=== PATIENT | male | born 1960 ===

== ENCOUNTER → 2016-12-15 | Day surgery (SDC) | payer BC, OTHER ==
[2016-12-05 07:45] VITALS: Ht 180.3 cm; Wt 84.1 kg
[~2016-12-15] VITALS: Ht 180.3 cm; Wt 84.1 kg
[~2016-12-15] MED LIST: ATROPINE SULFATE 0.1 MG/ML 5ML SYR IV PRN; BUPIVACAINE/EPINEPHRINE 0.25% 1:200,000 30 ML VIAL ONE; CEFAZOLIN 2000 MG/60 ML D5W IV SCH; DEXAMETHASONE SOD INJ 4 MG/ML VIAL ONE; EpHEDrine SULFATE 50MG/5ML SYR ONE; EpHEDrine SULFATE INJ 50 MG/ML AMP IV PRN; EpINEphrine INJ 1MG/ML AMP 1 MG/ML AMP ONE; FENTANYL CITRATE INJ 50 MCG/1 ML 2 ML VIAL IV PRN; FENTANYL CITRATE INJ 50 MCG/1 ML 2 ML VIAL ONE; KETO10TA PO; LACTATED RINGER'S 1000ML 1,000 ML IV SCH; LIDOCAINE HCL 2% 2 ML VIAL (20MG/ML) ONE; MIDAZOLAM HCL 1 MG/ML 2ML VIAL ONE; ONDANSETRON INJ 2 MG/ML 2 ML VIAL IV PRN; ONDANSETRON INJ 2 MG/ML 2 ML VIAL ONE; OXYC-57 PO; OXYCODONE/ACETAMINOPHEN 5-325 TAB PO PRN; PROPOFOL IV EMULSION 10 MG/ML 20 ML VIAL IV ONE; ROPIVACAINE 0.5% 5 MG/ML 30 ML VIAL ONE; SODIUM CHLORIDE 0.9% 1000ML 1,000 ML IV SCH
--- NOTE | 2016-12-15 06:45 | History & Physical Bridge - SC ---
H&P Re-Evaluation Bridge Note: I have examined the patient, reviewed the History & Physical and in the interval since the performance of the History & Physical I have noted the following changes of clinical significance: No changes noted
--- NOTE | 2016-12-15 09:40 | [facility] Post Operative Brief Note ---
Immediate Operative Summary Operative Date Dec 15, 2016. Pre-Operative Diagnosis Medium Rotator Cuff Tear Right Shoulder Post-Operative Diagnosis same Procedure(s) Performed Right Shoulder Arthroscopy,Medium Rotator Cuff Repair, Biceps Tenodesis Surgeon Dr. Maykel Tang Full Time Staff Interpreter Surgeon(s) Yony Arreaga PA-C Estimated Blood Loss 5cc Findings as above Specimens None Complication(s) None Disposition Recovery Room / PACU
--- NOTE | 2016-12-15 09:47 | OPERATIVE REPORT ---
DATE OF OPERATION: 12/15/2016 PREOPERATIVE DIAGNOSES: Medium sized right rotator cuff tear and biceps tendinopathy. POSTOPERATIVE DIAGNOSES: Same. PROCEDURE: Right shoulder diagnostic arthroscopy with limited debridement, acromioplasty, medium sized degenerative crescent shaped rotator cuff repair and open subpectoral biceps tenodesis. SURGEON: Dr. Pb Tang. GUYLINE OPERATOR: Yony Arreaga PA-C, whose assistance was necessary for positioning the arm and helping with instrumentation. ANESTHESIA: General with a right interscalene nerve block. COMPLICATIONS: None. CONDITION: Stable to PACU. INDICATIONS: Shaan is a pleasant 56-year-old male who presented to my office with complaints of right shoulder pain. MRI and clinical examination were diagnostic for a medium sized rotator cuff tear. I treated him conservatively for several years with injections and is finally ready to undergo rotator cuff repair. DESCRIPTION OF PROCEDURE: On 12/15/2016, he arrived at the [facility] for the above procedure. He was seen in the preoperative holding area and the operative extremity was identified and signed. He was given a preoperative antibiotic, taken back to the operating room, laid on the table in the supine position and put under general anesthesia. He was then put into the beachchair position. The right shoulder was prepped and draped in sterile fashion. Time-out was done and the patient and operative extremity was properly identified. A scope was placed in the posterior portal. Diagnostic arthroscopy showed no cartilage damage to the humeral head. There was a little grade 4 cartilage change on the far anterior glenoid. There was a lot of fraying of the labrum. There was a degenerative superior labral tear. The biceps tendon was generally intact and went through biceps som mechanism. There was a tear involving the entire supraspinatus. The infraspinatus, teres minor, and subscapularis were all checked and intact. An anterior portal was made. A shaver was used to do a limited debridement of the intraarticular structures and the biceps tendon was arthroscopically tenotomized. The scope was then put into the subacromial space. A lateral portal was made. A shaver was used to do a complete subacromial and subdeltoid bursectomy. An ablator was used to tease the coracoacromial ligament off the undersurface of the acromion and a 5-0 trey was used to complete an acromioplasty of a Bigliani type 3 acromion. A shaver was used to remove any excess debris. Attention was turned to the rotator cuff. An additional anterolateral portal was made. Faith cannulas were placed in each of the lateral portals. The greater tuberosity was prepared with a ring curette and a microfracture. The rotator cuff was then fixed with an Arthrex SpeedBridge configuration using 2 medial and 2 lateral 4.75-mm BioComposite SwiveLock suture anchors and FiberTape. This gave a nice repair. Multiple pictures were taken. The scope was placed back into the glenohumeral joint and the articular margin of the rotator cuff had been restored. Pictures were taken. Arthroscopic instruments were removed from the shoulder. Attention was turned to an open biceps tenodesis. A small incision was made over the inferior border of the pec major. Dissection was taken through the fascia and the long head of the biceps tendon was delivered out of the wound. The tendon was then whipstitched at the anticipated level of tenodesis and the remainder of the tendon was discarded. A 6-mm hole was drilled in the bicipital groove and the biceps tendon was tenodesed with an Arthrex biceps button that was passed through the posterior cortex in a tension slide technique to deliver the tendon into the 6-mm hole. This gave good fixation. The tails were then tied and cut. The wound was then irrigated and closed with 3-0 Vicryl and running 3-0 Monocryl. Steri-strips were placed. Portal sites were closed with 3-0 nylon. He was then placed in a soft dressing and abduction arm sling. He was then extubated, transferred to a [facility] and taken to the postanesthesia care unit in stable condition. He tolerated the procedure well. I attest to the content of the Intraoperative Record and any orders documented therein. Any exceptio ns are noted below.
--- NOTE | 2016-12-15 09:53 | Discharge Instructions-SurgCtr ---
Discharge Instructions Visit Reason for Visit: Full Thickness Rotator Cuff Tear, Shoulder Joint P Discharge Discharge Diagnosis / Problem: SAME ABOVE Discharge Goals Goal(s): Decrease discomfort, Improve function Activity Recommendations Activity Limitations: as noted below Lifting Limitations: until after follow-up appointment Exercise/Sports Limitations: until after follow-up appointment Shower/Bathe: tomorrow Driving or Machine Use: MAY NOT DRIVE WHILE IN THE SLING. SLING MUST BE WORN OTHER THAN FOR PT AND SHOWER Anesthesia . Post Anesthesia Instructions: If you have had General Anesthesia or IV Sedation: * Do not drive today. * Resume driving when surgeon permits. * Do not make important decisions or sign legal documents today. * Call surgeon for: 1. Temperature elevations greater than 101 degrees F. 2. Uncontrollable pain. 3. Excessive bleeding. 4. Persistent nausea and vomiting. 5. Medication intolerance (nausea, vomiting or rash). * For nausea and vomiting use only clear liquids such as: tea, soda, bouillon until nausea subsides, then gradually increase diet as tolerated. * If you have any concerns or questions, call your surgeon's office. If physician is unavailable and it is an emergency, call 911 or go to the nearest emergency room. . Instructions / Follow-Up Instructions / Follow-Up MEDICATIONS: * Resume previous medications unless instructed otherwise by your surgeon. * Always take pain medication on a full stomach or with food to avoid upset stomach. * Do not drink alcohol or drive while taking narcotics. * Ibuprofen or Tylenol may be taken if narcotic not needed. SPECIAL CARE INSTRUCTIONS: __ None _X_ Keep extremity elevated and iced x 48 hours; apply ice 20-30 minutes 8-10 times/day. May remove at night. __ Sling __24 hrs/day __ Remove at night _X_ Shoulder Immobilizer (MAY REMOVE AFTER 48 HOURS ONLY TO SHOWER AND FOR THERAPY) _X_ 24 hrs/day __ Remove at night _X_ Dressing __ Maintain until seen in office, may shower with plastic over site _X_ Remove dressings in 24-48 hours and then may shower _X_ Cover incisions with band-aids after showering _X_ Do not remove steri-strips (THEY MAY FALL OFF ON THEIR OWN) Call physician if chills or temperature rises above 102 degrees or pain unrelieved by prescribed pain medications at . . Diet Recommendations Home Diet: no limitations Fluid Restriction: None Procedures Procedures Performed: Right Shoulder Arthroscopy,Medium Rotator Cuff Repair, Biceps Tenodesis Pending Studies Studies pending at discharge: no Work Instructions Return To Work: after follow-up Lifting Limitations: NO LIFTING WITH RIGHT ARM Medical Emergencies . Who to Call and When: Medical Emergencies: If at any time you feel your situation is an emergency, please call 911 immediately. . Non-Emergent Contact Non-Emergency issues call your: Primary Care Provider Call Non-Emergent contact if: temperature is above 101.5 . . "Provider Documentation" section prepared by Ion Arreaga.
[2016-12-15 10:30] VITALS: TEMP 36.4
[2016-12-15 10:50] VITALS: BP 126/84; PULSE 59; O2SAT 97
--- NOTE | 2016-12-15 10:55 | Anesthesia Progress Nt - [facility] ---
Anesthesia Post Op Note Date & Time Dec 15, 2016 at 10:55 Vital Signs Pain Intensity: 0 Vital Signs Past 12 Hours Date Time Temp Pulse Resp B/P Pulse Ox O2 Delivery O2 Flow Rate FiO2 12/15/16 10:50 59 16 126/84 97 Room Air 12/15/16 10:30 36.4 60 16 132/80 96 Room Air 12/15/16 10:21 36.4 12/15/16 10:18 58 12 120/84 95 12/15/16 10:18 56 12 12/15/16 10:13 53 12 126/81 99 12/15/16 10:13 54 12 12/15/16 10:08 58 13 152/85 99 12/15/16 10:08 58 13 12/15/16 10:03 65 13 12/15/16 10:03 64 13 138/88 96 12/15/16 09:58 64 13 12/15/16 09:58 63 13 126/82 99 12/15/16 09:53 63 15 12/15/16 09:53 63 15 131/83 99 12/15/16 09:50 142/84 12/15/16 09:48 36.0 68 16 142/84 98 Diffusion Mask 6 12/15/16 08:03 0 12/15/16 07:58 55 12/15/16 07:58 55 24 130/76 97 12/15/16 07:53 57 12/15/16 07:53 56 20 130/80 98 12/15/16 07:48 60 12/15/16 07:48 60 16 129/87 12/15/16 07:43 57 12/15/16 07:43 57 13 125/85 98 12/15/16 07:38 58 12/15/16 07:38 59 18 149/102 12/15/16 07:33 57 12/15/16 07:33 58 144/97 98 12/15/16 07:30 55 12 139/90 97 Mask 4 12/15/16 07:28 56 12/15/16 07:28 56 0 139/90 12/15/16 07:23 53 12/15/16 07:23 53 0 150/89 96 12/15/16 07:18 56 0 140/94 96 12/15/16 07:18 54 12/15/16 07:13 55 12/15/16 07:13 60 0 134/89 96 12/15/16 07:08 55 0 130/85 97 12/15/16 07:08 56 12/15/16 06:38 59 98 12/15/16 06:38 59 12/15/16 06:37 127/84 12/15/16 06:36 36.9 67 20 127/84 97 Room Air Notes Mental Status: alert / awake / arousable, participated in evaluation Pt Amnestic to Procedure: Yes Nausea / Vomiting: adequately controlled Pain: adequately controlled Airway Patency, RR, SpO2: stable & adequate BP & HR: stable & adequate Hydration State: stable & adequate Anesthetic Complications: no major complications apparent
== END | disposition home or self-care (01) ==
LOC: X.SURG 06:23
PROVIDERS: ATTEND Orthopaedic Surgery
DX: M75.101 Unspecified rotator cuff tear or rupture of right shoulder, not specified as traumatic (principal); M75.21 Bicipital tendinitis, right shoulder

== ENCOUNTER → 2017-01-24 | Outpatient (CLI) | payer BC, OTHER ==
[~2017-01-24] MED LIST changes: -ATROPINE SULFATE 0.1 MG/ML 5ML SYR IV PRN; -BUPIVACAINE/EPINEPHRINE 0.25% 1:200,000 30 ML VIAL ONE; -CEFAZOLIN 2000 MG/60 ML D5W IV SCH; -DEXAMETHASONE SOD INJ 4 MG/ML VIAL ONE; -EpHEDrine SULFATE 50MG/5ML SYR ONE; -EpHEDrine SULFATE INJ 50 MG/ML AMP IV PRN; -EpINEphrine INJ 1MG/ML AMP 1 MG/ML AMP ONE; -FENTANYL CITRATE INJ 50 MCG/1 ML 2 ML VIAL IV PRN; -FENTANYL CITRATE INJ 50 MCG/1 ML 2 ML VIAL ONE; -LACTATED RINGER'S 1000ML 1,000 ML IV SCH; -LIDOCAINE HCL 2% 2 ML VIAL (20MG/ML) ONE; -MIDAZOLAM HCL 1 MG/ML 2ML VIAL ONE; -ONDANSETRON INJ 2 MG/ML 2 ML VIAL IV PRN; -ONDANSETRON INJ 2 MG/ML 2 ML VIAL ONE; -OXYCODONE/ACETAMINOPHEN 5-325 TAB PO PRN; -PROPOFOL IV EMULSION 10 MG/ML 20 ML VIAL IV ONE; -ROPIVACAINE 0.5% 5 MG/ML 30 ML VIAL ONE; -SODIUM CHLORIDE 0.9% 1000ML 1,000 ML IV SCH
[2017-01-24 13:54] LABS: BASO % 0.6 %; BASO ABS # 0.03 K/uL (0-0.2); COMPLETE YES; EOS % 4.8 %; HEMATOCRIT 41.2 % (42-52); IG% 0.2 %; LYMPH % 46.9 %; LYMPH ABS # 2.53 K/uL (1.2-3.4); MEAN CELL VOLUME 88.2 fL (80-100); MEAN CORPUSCULAR HEMOGLOBIN 29.8 pg (25-34); MEAN CORPUSCULAR HGB CONC 33.7 g/dl (32-36); MEAN PLATELET VOLUME 10.6 fL (7.4-10.4); MONO % 8.5 %; PLATELET COUNT 208 K/uL (130-400); RED BLOOD COUNT 4.67 M/uL (4.7-6.1)
[2017-01-24 14:05] LABS: BLOOD UREA NITROGEN 22 mg/dl (7-18); BUN/CREATININE RATIO 23.8 (10-20); CALCIUM 9.2 mg/dl (8.5-10.1); CARBON DIOXIDE 25 mmol/L (21-32); CHLORIDE 107 mmol/L (98-107); CREATININE 0.92 mg/dl (0.60-1.40); GLUCOSE 84 mg/dl (70-99); POTASSIUM 4.1 mmol/L (3.5-5.1); SODIUM 141 mmol/L (136-145)
== END | disposition home or self-care (01) ==
LOC: C.LABBC 11:20
PROVIDERS: ATTEND Orthopaedic Surgery
DX: Z01.812 Encounter for preprocedural laboratory examination (principal); M75.41 Impingement syndrome of right shoulder

== ENCOUNTER → 2017-02-02 | Day surgery (SDC) | payer BC, OTHER ==
[2017-01-26 08:13] VITALS: Ht 180.3 cm; Wt 84.1 kg
[~2017-02-02] VITALS: Ht 180.3 cm; Wt 84.1 kg
[~2017-02-02] MED LIST changes: +ATROPINE SULFATE 0.1 MG/ML 5ML SYR IV PRN; +BUPIVACAINE/EPINEPHRINE 0.25% 1:200,000 30 ML VIAL ONE; +CEFAZOLIN 2000 MG/60 ML D5W IV SCH; +DEXAMETHASONE SOD INJ 4 MG/ML VIAL ONE; +EpHEDrine SULFATE INJ 50 MG/ML AMP IV PRN; +EpINEphrine INJ 1MG/ML AMP 1 MG/ML AMP ONE; +FENTANYL CITRATE INJ 50 MCG/1 ML 2 ML VIAL IV PRN; +FENTANYL CITRATE INJ 50 MCG/1 ML 2 ML VIAL ONE; +FLUMAZENIL 0.1 MG/1 ML 10 ML VIAL IV PRN; +HYDROmorphone INJ 2 MG/ML SYR/VIAL IV PRN; +LABETALOL HCL IV 5 MG/ML 20ML IV PRN; +LACTATED RINGER'S 1000ML 1,000 ML IV SCH; +LIDOCAINE HCL 2% 2 ML VIAL (20MG/ML) ONE; +MEPERIDINE HCL 25 MG/ML CARP IV PRN; +MIDAZOLAM HCL 1 MG/ML 2ML VIAL ONE; +NALOXONE HCL 0.4 MG/1 ML VIAL/CARP IV PRN; +ONDANSETRON INJ 2 MG/ML 2 ML VIAL IV PRN; +ONDANSETRON INJ 2 MG/ML 2 ML VIAL ONE; +OXYCODONE/ACETAMINOPHEN 5-325 TAB PO PRN; +PHENYLEPHRINE 100MCG/ML 5ML SYR IV PRN; +PROPOFOL IV EMULSION 10 MG/ML 20 ML VIAL IV ONE; +ROPIVACAINE 0.5% 5 MG/ML 30 ML VIAL ONE; +SODIUM CHLORIDE 0.9% 1000ML 1,000 ML IV SCH
[2017-02-02] MEDS: BUPIVACAINE/EPINEPHRINE 0.25% 1:200,000 30 ML VIAL ONE ×2 (14:01→14:10)
--- NOTE | 2017-02-02 14:21 | [facility] Post Operative Brief Note ---
Immediate Operative Summary Operative Date Feb 02, 2017. Pre-Operative Diagnosis Left Shoulder Rotator Cuff Tendonitis, Impingement Post-Operative Diagnosis Same Procedure(s) Performed Left Shoulder Arthroscopy, Subacromial Decompression, Open Bicep Tenodesis Surgeon Dr. Tang Jewelry Setter Surgeon(s) Reynaldo Arreaga PA-C Estimated Blood Loss 5 ml Findings as above Specimens None Complication(s) None Disposition Recovery Room / PACU
--- NOTE | 2017-02-02 14:22 | Discharge Instructions-SurgCtr ---
Discharge Instructions Date of Service Feb 02, 2017. Visit Reason for Visit: Left Shoulder Rotator Cuff Tendonitis, Impingement Discharge Discharge Diagnosis / Problem: SAME ABOVE Discharge Goals Goal(s): Decrease discomfort, Improve function Activity Recommendations Activity Limitations: as noted below Lifting Limitations: until after follow-up appointment Exercise/Sports Limitations: until after follow-up appointment Shower/Bathe: tomorrow Anesthesia . Post Anesthesia Instructions: If you have had General Anesthesia or IV Sedation: * Do not drive today. * Resume driving when surgeon permits. * Do not make important decisions or sign legal documents today. * Call surgeon for: 1. Temperature elevations greater than 101 degrees F. 2. Uncontrollable pain. 3. Excessive bleeding. 4. Persistent nausea and vomiting. 5. Medication intolerance (nausea, vomiting or rash). * For nausea and vomiting use only clear liquids such as: tea, soda, bouillon until nausea subsides, then gradually increase diet as tolerated. * If you have any concerns or questions, call your surgeon's office. If physician is unavailable and it is an emergency, call 911 or go to the nearest emergency room. . Instructions / Follow-Up Instructions / Follow-Up MEDICATIONS: * Resume previous medications unless instructed otherwise by your surgeon. * Always take pain medication on a full stomach or with food to avoid upset stomach. * Do not drink alcohol or drive while taking narcotics. * Ibuprofen or Tylenol may be taken if narcotic not needed. SPECIAL CARE INSTRUCTIONS: __ None _X_ Keep extremity elevated and iced x 48 hours; apply ice 20-30 minutes 8-10 times/day. May remove at night. _X_ Sling (WEAR NEEDED FOR COMFORT) __24 hrs/day __ Remove at night __ Shoulder Immobilizer __ 24 hrs/day __ Remove at night _X_ Dressing __ Maintain until seen in office, may shower with plastic over site _X_ Remove dressings in 24-48 hours and then may shower _X_ Cover incisions with band-aids after showering _X_ Do not remove steri-strips (THEY MAY FALL OFF ON THEIR OWN) Call physician if chills or temperature rises above 102 degrees or pain unrelieved by prescribed pain medications at . . Diet Recommendations Home Diet: no limitations Fluid Restriction: None Procedures Procedures Performed: Left Shoulder Arthroscopy, Subacromial Decompression, Open Bicep Tenodesis Pending Studies Studies pending at discharge: no Work Instructions Return To Work: after follow-up Lifting Limitations: NO LIFTING WITH LEFT ARM Medical Emergencies . Who to Call and When: Medical Emergencies: If at any time you feel your situation is an emergency, please call 911 immediately. . Non-Emergent Contact Non-Emergency issues call your: Primary Care Provider Call Non-Emergent contact if: you have a fever, temperature is above 101.5 . . "Provider Documentation" section prepared by Ion Arreaga.
--- NOTE | 2017-02-02 14:52 | OPERATIVE REPORT ---
DATE OF OPERATION: 02/02/2017 PREOPERATIVE DIAGNOSIS: External impingement, biceps tendonitis of the left shoulder. POSTOPERATIVE DIAGNOSIS: Same. PROCEDURE: Left shoulder diagnostic arthroscopy with limited debridement, acromioplasty and open subpectoral biceps tenodesis. SURGEON: Dr. Pb Tang. RECORDS ANALYST: Yony Arreaga PA-C, whose assistance was necessary for positioning the arm and helping with instrumentation. ANESTHESIA: General with left interscalene nerve block. COMPLICATIONS: None. CONDITION: Stable to PACU. INDICATIONS: Shaan is a pleasant 56-year-old male who I did a right rotator cuff repair on about 8 weeks ago. He has done well with that. He was having a lot of left shoulder pain. MRI and clinical examination were diagnostic for severe external impingement without cuff tear. He elected to undergo arthroscopy. OPERATION AND FINDINGS: PROCEDURE: On 02/02/2017, he arrived at [facility] for the above procedure. He was seen in the preoperative holding and the operative extremity was identified and signed. He was given a preoperative antibiotic, taken back to the operating room, laid on the table in supine position and put under general anesthesia. He was then put into the beachchair position. The left shoulder was prepped and draped in sterile fashion. Time-out was done and the patient and operative extremity was properly identified. A scope was introduced in the posterior portal. Diagnostic arthroscopy showed a line of grade 4 chondral damage along the center of the humerus. Pictures were taken. There was also some grade 4 chondral damage in the anterior inferior aspect of the glenoid. There was some fraying of the anterior and inferior labrum. The biceps tendon was very red on the dorsal aspect. There was no tearing of the supraspinatus, infraspinatus, teres minor or subscapularis. An anterior portal was made. A shaver was used to do a limited debridement of the intraarticular structures and the biceps tendon was arthroscopically tenotomized. The scope was then put into the subacromial space. A lateral portal was made. A shaver was used to do a complete subacromial and subdeltoid bursectomy. An ablator was used to tease the coracoacromial ligament off the undersurface of the acromion and a 5-0 trey was used to complete an acromioplasty of a Bigliani type 3 acromion. A shaver was used to remove any excess debris and attention was turned to the rotator cuff. The rotator cuff was examined extensively without evidence of tear. Arthroscopic instruments were removed from the shoulder. Attention was turned to an open biceps tenodesis. A small incision was made over the inferior border of the pec major. Dissection was taken down through the fascia and the long head of the biceps tendon was delivered out of the wound. The tendon was then whip stitched at the anticipated level of tenodesis and the remainder of the tendon was discarded. A 6 mm hole was drilled in the bicipital groove and the biceps tendon was tenodesed with an Arthrex biceps button that was passed through the posterior cortex in a tension slide technique to deliver the tendon into the 6 mm hole. This gave good fixation. The wound was then irrigated and closed with 3-0 Vicryl and running 3-0 Monocryl. Steri-strips were placed. Portal sites were closed with 3-0 nylon. He was then placed in a soft dressing and a regular arm sling. He was then extubated, transferred to a litter and taken to the postanesthesia care unit in stable condition. He tolerated the procedure well. I attest to the content of the Intraoperative Record and any orders documented therein. Any exceptio ns are noted below.
[2017-02-02 14:54] VITALS: TEMP 36.4
--- NOTE | 2017-02-02 14:55 | Anesthesia Progress Nt - [facility] ---
Anesthesia Post Op Note Date & Time Feb 02, 2017 at 14:55 Vital Signs Pain Intensity: 0 Vital Signs Past 12 Hours Date Time Temp Pulse Resp B/P Pulse Ox O2 Delivery O2 Flow Rate FiO2 02/02/17 14:51 36.4 134/98 02/02/17 14:48 55 12 95 02/02/17 14:48 57 12 02/02/17 14:47 59 13 96 02/02/17 14:47 57 13 02/02/17 14:46 129/88 02/02/17 14:42 60 12 02/02/17 14:42 61 12 97 02/02/17 14:41 145/85 02/02/17 14:37 59 14 97 02/02/17 14:37 60 14 02/02/17 14:36 150/83 02/02/17 14:32 56 9 02/02/17 14:32 56 9 100 02/02/17 14:31 142/89 02/02/17 14:27 59 8 99 02/02/17 14:27 60 8 02/02/17 14:26 120/85 02/02/17 14:23 144/93 02/02/17 14:22 36.2 75 16 144/93 99 Mask 6 02/02/17 14:22 67 98 02/02/17 14:22 67 02/02/17 13:17 0 02/02/17 13:16 0 02/02/17 13:15 0 02/02/17 13:11 167/103 02/02/17 13:10 66 0 97 02/02/17 13:10 68 02/02/17 13:10 20 02/02/17 13:06 175/99 02/02/17 13:05 20 02/02/17 13:05 84 98 02/02/17 13:05 83 02/02/17 13:01 152/102 02/02/17 13:00 80 02/02/17 13:00 16 02/02/17 13:00 80 0 99 02/02/17 12:55 76 0 02/02/17 12:50 78 13 02/02/17 12:45 79 14 02/02/17 12:40 77 13 02/02/17 12:36 138/97 02/02/17 12:35 72 25 99 02/02/17 12:35 72 02/02/17 12:31 186/101 02/02/17 12:30 75 02/02/17 12:30 75 29 100 02/02/17 12:29 176/104 02/02/17 12:25 73 0 02/02/17 12:20 71 0 02/02/17 12:15 79 0 02/02/17 12:10 68 0 02/02/17 12:05 72 0 02/02/17 12:00 68 0 02/02/17 11:55 78 0 02/02/17 11:50 67 0 02/02/17 11:45 71 0 02/02/17 11:40 54 0 02/02/17 11:35 0 02/02/17 11:30 0 02/02/17 11:25 0 02/02/17 11:20 0 02/02/17 11:15 0 02/02/17 11:10 0 02/02/17 10:57 37.2 67 16 160/99 97 Room Air Notes Mental Status: alert / awake / arousable, participated in evaluation Pt Amnestic to Procedure: Yes Nausea / Vomiting: adequately controlled Pain: adequately controlled Airway Patency, RR, SpO2: stable & adequate BP & HR: stable & adequate Hydration State: stable & adequate Anesthetic Complications: no major complications apparent
[2017-02-02 15:26] VITALS: BP 169/76; PULSE 58; O2SAT 97
== END | disposition home or self-care (01) ==
LOC: X.SURG 10:43
PROVIDERS: ATTEND Orthopaedic Surgery
DX: M75.42 Impingement syndrome of left shoulder (principal); M75.22 Bicipital tendinitis, left shoulder; Z98.890 Other specified postprocedural states; Z82.49 Family history of ischemic heart disease and other diseases of the circulatory system; Z80.8 Family history of malignant neoplasm of other organs or systems

== ENCOUNTER → 2017-02-17 | Outpatient (CLI) | payer BC, OTHER ==
[~2017-02-17] MED LIST changes: -ATROPINE SULFATE 0.1 MG/ML 5ML SYR IV PRN; -BUPIVACAINE/EPINEPHRINE 0.25% 1:200,000 30 ML VIAL ONE; -CEFAZOLIN 2000 MG/60 ML D5W IV SCH; -DEXAMETHASONE SOD INJ 4 MG/ML VIAL ONE; -EpHEDrine SULFATE INJ 50 MG/ML AMP IV PRN; -EpINEphrine INJ 1MG/ML AMP 1 MG/ML AMP ONE; -FENTANYL CITRATE INJ 50 MCG/1 ML 2 ML VIAL IV PRN; -FENTANYL CITRATE INJ 50 MCG/1 ML 2 ML VIAL ONE; -FLUMAZENIL 0.1 MG/1 ML 10 ML VIAL IV PRN; -HYDROmorphone INJ 2 MG/ML SYR/VIAL IV PRN; -LABETALOL HCL IV 5 MG/ML 20ML IV PRN; -LACTATED RINGER'S 1000ML 1,000 ML IV SCH; -LIDOCAINE HCL 2% 2 ML VIAL (20MG/ML) ONE; -MEPERIDINE HCL 25 MG/ML CARP IV PRN; -MIDAZOLAM HCL 1 MG/ML 2ML VIAL ONE; -NALOXONE HCL 0.4 MG/1 ML VIAL/CARP IV PRN; -ONDANSETRON INJ 2 MG/ML 2 ML VIAL IV PRN; -ONDANSETRON INJ 2 MG/ML 2 ML VIAL ONE; -OXYCODONE/ACETAMINOPHEN 5-325 TAB PO PRN; -PHENYLEPHRINE 100MCG/ML 5ML SYR IV PRN; -PROPOFOL IV EMULSION 10 MG/ML 20 ML VIAL IV ONE; -ROPIVACAINE 0.5% 5 MG/ML 30 ML VIAL ONE; -SODIUM CHLORIDE 0.9% 1000ML 1,000 ML IV SCH
[2017-02-17 10:01] LABS: HEMATOCRIT 43.7 % (42-52); MEAN CELL VOLUME 87.9 fL (80-100); MEAN CORPUSCULAR HEMOGLOBIN 30.2 pg (25-34); MEAN CORPUSCULAR HGB CONC 34.3 g/dl (32-36); PLATELET COUNT 233 K/uL (130-400); RED BLOOD COUNT 4.97 M/uL (4.7-6.1); WHITE BLOOD COUNT 6.77 K/uL (4.8-10.8)
== END | disposition home or self-care (01) ==
LOC: C.LAB1850 08:55
PROVIDERS: ATTEND Physician Assistant
DX: K62.5 Hemorrhage of anus and rectum (principal)

== ENCOUNTER → 2017-05-01 | Outpatient (CLI) | payer OTHER ==
--- NOTE | 2017-05-01 12:44 | DIAGNOSTIC IMAGING REPORT ---
CHEST 2 VIEWS ROUTINE CLINICAL HISTORY: R05 [id number] COMPARISON STUDY: 09/14/2011 FINDINGS: The cardiac and mediastinal contours are normal. There is no evidence of focal pulmonary consolidation. There is no evidence of failure. No pleural effusions are visualized.[ IMPRESSION: No active disease in the chest. Electronically signed by: Juan Marrero M.D. 05/01/2017 12:43 PM Dictated Date/Time: 05/01/2017 12:42 PM
== END | disposition home or self-care (01) ==
LOC: C.RAD1850 11:38
PROVIDERS: ATTEND Nurse Practitioner Adult Health
DX: R05 Cough (principal)